=== PATIENT | female | born 1965 | race Caucasian/White ===

== ENCOUNTER 2016-08-14 07:38 | Emergency (ER) | payer BC ==
--- NOTE | 2016-08-14 07:52 | UC ---
Throat Pain/Nasal Pj HPI - HPI Summary HPI Summary: [address] which has not resolved and cough. Cough lingers and productive of yellow sputum. no fever. she has hoarsness. no hemoptysis. no calf pain. Chronic leg swelling is still present. - History of Current Complaint Stated Complaint: SORE THROAT,EAR PAIN,COUGH Time Seen by Provider: 08/14/16 07:48 Hx Obtained From: Patient ?: No Onset/Duration: Gradual Onset Severity: Moderate Cough: Productive Associated Signs & Symptoms: Positive: Dysphagia, Nasal Discharge. Negative: Drooling, Vomiting, Rash - Epiglottits Risk Factors Epiglottis Risk Factors: Negative - Allergies/Home Medications Allergies/Adverse Reactions: Allergies Allergy/AdvReac Type Severity Reaction Status Date / Time Cefuroxime [From Ceftin] Allergy Hives and Verified 08/14/16 07:55 Swelling Home Medications: Home Medications Cholecalciferol [Vitamin D] 2,000 unit PO DAILY 08/14/16 [History Confirmed ] Hydroxychloroquine TAB* [Plaquenil TAB*] 400 mg PO DAILY 08/14/16 [History Confirmed 08/14/16] Pantoprazole TAB (NF) [Protonix TAB (NF)] 40 mg PO DAILY 08/14/16 [History Confirmed 08/14/16] PMH/Surg Hx/FS Hx/Imm Hx Endocrine History Of: Reports: Thyroid Disease Respiratory History Of: Reports: Bronchitis, Pneumonia - Surgical History Surgical History: Yes Surgery Procedure, Year, and Place: Hysterectomy, 2013; Lumbar, 2008 - Family History Known Family History: Positive: Hypertension Family History: history of cancer in family - Social History Alcohol Use: None Substance Use Type: None Smoking Status (MU): Never Smoked Tobacco - Immunization History Most Recent Influenza Vaccination: Not the 2014/2015 Season Review of Systems All Other Systems Reviewed And Are Negative: Yes Physical Exam Triage Information Reviewed: Yes Appearance: Well-Appearing, No Pain Distress, Ill-Appearing - Her appearance is consistent with URI. no distress., Obese Vital Signs Reviewed: Yes Eye Exam: Normal Eyes: Positive: Conjunctiva Clear. Negative: Conjunctiva Inflamed ENT: Positive: Normal ENT inspection, Hearing grossly normal, Pharynx normal, Pharyngeal erythema, Nasal congestion, TMs normal. Negative: Nasal drainage, TM bulging, TM dull, TM red, Tonsillar swelling, Tonsillar exudate, Trismus, Muffled/hoarse voice Neck exam: Normal Neck: Positive: Supple, Nontender, No Lymphadenopathy. Negative: Nuchal Rigidity, Tenderness @, Enlarged Nodes @ Respiratory: Positive: Lungs clear - No egophony breezy. she is breathing and talking comfortably. occassional non productive cough during my time in theroom with her., Normal breath sounds, No respiratory distress, No accessory muscle use. Negative: Respiratory distress, Decreased breath sounds, Accessory muscle use, Crackles, Rhonchi, Stridor, Wheezing Cardiovascular Exam: Normal Cardiovascular: Positive: RRR, No Murmur, Pulses Normal Abdominal Exam: Normal Abdomen Description: Positive: Nontender, No Organomegaly, Soft Musculoskeletal Exam: Normal Musculoskeletal: Positive: Edema @ - breezy calves. no redness, tenderness. neg homans breezy. Neurological: Positive: Alert, Muscle Tone Normal. Negative: Fatigued, Lethargic, Unresponsive Psychological Exam: Normal Skin Exam: Normal Skin: Negative: rashes Throat Pain/Nasal Course/Dx - Differential Dx/Diagnosis Differential Diagnosis/HQI/PQRI: Epiglottitis, Foreign Body, Influenza, Laryngitis, Mononucleosis, Otitis Media, Peritonsillar Abscess, Pharyngitis, Sinusitis, Tonsillitis, URI Provider Diagnoses: acute bronchitis. Discharge - Discharge Plan Condition: Stable Disposition: HOME Prescriptions: Azithromyxin PEDRO (NF) [Z-Pedro (Zithromax) 250 mg tabs #6] 2 tab PO .TODAY, THEN 1 DAILY #6 tab Patient Education Materials: Acute Bronchitis (ED) Referrals: Elvira Villanueva MD [Primary Care Provider] - If Needed
[2016-08-14 07:53] VITALS: BP 121/77
== END 2016-08-14 08:23 | disposition home or self-care (01) ==
LOC: UCCORT 07:38
DX: J20.9 Acute bronchitis, unspecified (principal); E66.9 Obesity, unspecified; Z88.1 Allergy status to other antibiotic agents
CPT/HCPCS: 99212; G0463

== ENCOUNTER 2017-02-28 17:18 | Emergency (ER) | payer BC ==
[2017-02-28 18:05] VITALS: BP 122/68
--- NOTE | 2017-02-28 18:44 | UC ---
Skin Complaint HPI - HPI Summary HPI Summary: Scratching and itching for the past few weeks. Her dog is being treated for mites. she has had itching without fever or joint pain. it is worse at night. - History of Current Complaint Chief Complaint: [facility] Time Seen by Provider: 02/28/17 18:24 Stated Complaint: SKIN COMPLAINT Hx Obtained From: Patient Hx Last Menstrual Period: n/a ?: No Onset/Duration: Gradual Onset Skin Exposure Onset/Duration: Weeks Ago Onset Severity: Moderate Current Severity: Mild Location: Diffuse Character: Pruritus, Redness Aggravating Factor(s): Wet Conditions Alleviating Factor(s): Nothing Associated Signs & Symptoms: Positive: Negative - Allergy/Home Medications Allergies/Adverse Reactions: Allergies Allergy/AdvReac Type Severity Reaction Status Date / Time Cefuroxime [From Ceftin] Allergy Hives and Verified 02/28/17 18:05 Swelling Review of Systems Skin: Rash All Other Systems Reviewed And Are Negative: Yes PMH/Surg Hx/FS Hx/Imm Hx Previously Healthy: No - Surgical History Surgical History: Yes Surgery Procedure, Year, and Place: Hysterectomy, 2013; Lumbar, 2008 - Family History Known Family History: Positive: Hypertension Family History: history of cancer in family - Social History Alcohol Use: Rare Substance Use Type: None Smoking Status (MU): Never Smoked Tobacco - Immunization History Most Recent Influenza Vaccination: not 2017 Physical Exam Triage Information Reviewed: Yes Appearance: Well-Appearing, Well-Nourished, Obese Vital Signs: Initial Vital Signs Temp 97.9 F 02/28/17 18:00 Pulse 64 02/28/17 18:00 Resp 16 02/28/17 18:00 BP 122/68 02/28/17 18:00 Pulse Ox 98 02/28/17 18:00 Vital Signs Reviewed: Yes Eyes: Positive: Conjunctiva Clear ENT: Positive: Pharynx normal Neck: Positive: Supple, Nontender, No Lymphadenopathy Respiratory: Positive: Lungs clear, Normal breath sounds, No respiratory distress, No accessory muscle use Cardiovascular: Positive: RRR, No Murmur, Pulses Normal Abdomen Description: Positive: Nontender, No Organomegaly, Soft Musculoskeletal: Positive: Strength Intact, ROM Intact, No Edema Neurological: Positive: Alert, Muscle Tone Normal. Negative: Fatigued Psychological: Positive: Age Appropriate Behavior Skin Exam: Other - small pink papules between the folds of abd. no wrist and hand involvement. Course/Dx - Diagnoses Provider Diagnoses: mites. scabies. insect bites Discharge - Discharge Plan Condition: Good Disposition: HOME Prescriptions: Permethrin [Elimite] 5 % EX DAILY #2 cre Patient Education Materials: Scabies (ED) Referrals: Elvira Villanueva MD [Primary Care Provider] - If Needed
== END 2017-02-28 18:48 | disposition home or self-care (01) ==
LOC: UCCORT 17:18
DX: B88.9 Infestation, unspecified (principal); B86 Scabies; T14.8XXA Other injury of unspecified body region, initial encounter; W57.XXXA Bitten or stung by nonvenomous insect and other nonvenomous arthropods, initial encounter
CPT/HCPCS: 99212; G0463